=== PATIENT | male | born 1955 | race Caucasian/White ===

== ENCOUNTER 2018-07-24 10:44 | Emergency (ER) | payer BC ==
--- NOTE | 2018-07-24 10:58 | ER Document Report ---
ED Medical Screen (RME) - General Chief Complaint: S/S of Possible Stroke Stated Complaint: LEFT ARM TINGLING, DIZZY Time Seen by Provider: 07/24/18 10:53 TRAVEL OUTSIDE OF THE [place] IN LAST 30 DAYS: No - HPI Notes: 07/24/18 10:54 Patient is a 63-year-old male who was asked to see at the pivot desk for possible stroke alert. Patient states that he was feeling well this morning, but at 8:30 AM started feeling weakness and numbness to his left arm. Patient states that he also has a left-sided headache. Brief H&P performed to allow for CT of the head. Stroke order set already placed at [facility]. PHYSICAL EXAMINATION: GENERAL: Well-appearing, well-nourished and in no acute distress. A&Ox4. Answers questions appropriately. HEAD: Atraumatic, normocephalic. Non-tender. EYES: Pupils equal round and reactive to light, extraocular movements intact, sclera anicteric, conjunctiva are normal. No nystagmus. NEUROLOGICAL: NIH 3 (1 for left arm drift, 1 for minimal dec in sensation, and another 1 for mild limb ataxia to the LUE). GCS 15. Cranial nerves grossly intact. Normal speech. PSYCH: Normal mood, normal affect. - Related Data Allergies/Adverse Reactions: No Known Allergies Allergy (Verified 07/24/18 10:49)
--- NOTE | 2018-07-24 11:13 | RADIOLOGY REPORT (SQ) ---
EXAM DESCRIPTION: CHEST SINGLE VIEW COMPLETED DATE/TIME: 07/24/2018 11:03 am REASON FOR STUDY: stroke alert COMPARISON: None. NUMBER OF VIEWS: One view. TECHNIQUE: Single frontal radiographic view of the chest acquired. LIMITATIONS: None. FINDINGS: LUNGS AND PLEURA: No opacities, masses or pneumothorax. No pleural effusion. MEDIASTINUM AND HILAR STRUCTURES: No masses. Contour normal. HEART AND VASCULAR STRUCTURES: Heart normal in size. Normal vasculature. BONES: No acute findings. HARDWARE: None in the chest. OTHER: No other significant finding. IMPRESSION: NO SIGNIFICANT RADIOGRAPHIC FINDING IN THE CHEST. TECHNICAL DOCUMENTATION: JOB ID: [id number] [email or web address]- All Rights Reserved Reading location - IP/workstation name: [email or web address]
--- NOTE | 2018-07-24 11:13 | RADIOLOGY REPORT (SQ) ---
EXAM DESCRIPTION: CT HEAD WITHOUT COMPLETED DATE/TIME: 07/24/2018 11:03 am REASON FOR STUDY: stroke alert COMPARISON: None. TECHNIQUE: Axial images acquired through the brain without intravenous contrast. Images reviewed wi th bone, brain and subdural windows. Additional sagittal and coronal reconstructions were generated. Images stored on PACS. All CT scanners at this facility use dose modulation, iterative reconstruction, and/or weight based d osing when appropriate to reduce radiation dose to as low as reasonably achievable (ALARA). [facility]: Dose Right [facility]: CareDose [facility]: Dose Right [facility]: Teradose 4D [facility]: iPosition RADIATION DOSE: CT Rad equipment meets quality standard of care and radiation dose reduction techniq ues were employed. CTDIvol: 53.2 mGy. DLP: 1017 mGy-cm. mGy. LIMITATIONS: None. FINDINGS: VENTRICLES: Normal size and contour. CEREBRUM: No masses. No hemorrhage. No midline shift. No evidence for acute infarction. Normal gra y/white matter differentiation. No areas of low density in the white matter. CEREBELLUM: No masses. No hemorrhage. No alteration of density. No evidence for acute infarction. EXTRAAXIAL SPACES: No fluid collections. No masses. ORBITS AND GLOBE: No intra- or extraconal masses. Normal contour of globe without masses. CALVARIUM: No fracture. PARANASAL SINUSES: No fluid or mucosal thickening. SOFT TISSUES: No mass or hematoma. OTHER: No other significant finding. IMPRESSION: NORMAL BRAIN CT WITHOUT CONTRAST. EVIDENCE OF ACUTE STROKE: NO. COMMENT: Pertinent positive or negative findings of the imaging study reported as a CRITICAL EXAM alban MEHTA PA-C at11:07 on 07/24/2018. Category of Critical Exam: Stroke alert Quality ID # [id number]: Final reports with documentation of one or more dose reduction techniques (e.g., Au tomated exposure control, adjustment of the mA and/or kV according to patient size, use of iterative reconstruction technique) TECHNICAL DOCUMENTATION: JOB ID: [id number] All Rights Reserved Reading location - IP/workstation name: [email or web address]
[2018-07-24 11:17] LABS: PARTIAL THROMBOPLASTIN TIME 24.4 SEC (23.5-35.8)
[2018-07-24 11:20] LABS: INTERNATIONAL RATION (INR) 0.88; PROTHROMBIN TIME 12.4 SEC (11.4-15.4)
[2018-07-24 11:27] LABS: ABSOLUTE EOSINOPHILS # (AUTO) 0.1 10^3/uL (0.0-0.6); ABSOLUTE LYMPHOCYTES (AUTO) 0.8 10^3/uL (0.5-4.7); ABSOLUTE MONOCYTES (AUTO) 0.4 10^3/uL (0.1-1.4); ABSOLUTE NEUT (AUTO) 7.8 10^3/uL (1.7-8.2); BASOPHILS % (AUTO) 0.2 % (0-2); EOSINOPHILS % (AUTO) 0.8 % (0-6); HEMATOCRIT 46.7 % (37.9-51.0); HEMOGLOBIN 15.4 g/dL (13.5-17.0); LYMPHOCYTES % (AUTO) 9.2 % (13-45); MEAN CORPUSCULAR HEMOGLOBIN 30.4 pg (27.0-33.4); MEAN CORPUSCULAR HGB CONC 33.1 g/dL (32.0-36.0); MEAN CORPUSCULAR VOLUME 92 fl (80-97); MONOCYTES % (AUTO) 4.8 % (3-13); PLATELET COUNT 194 10^3/uL (150-450); RED BLOOD COUNT 5.08 10^6/uL (4.35-5.55); TOTAL CELLS COUNTED % (AUTO) 100 %; WHITE BLOOD COUNT 9.2 10^3/uL (4.0-10.5)
[2018-07-24 11:38] LABS: ALANINE AMINOTRANSFERASE 31 U/L (21-72); ALBUMIN 4.6 g/dL (3.5-5.0); ALKALINE PHOSPHATASE 67 U/L (38-126); ANION GAP 11 (5-19); ASPARTATE AMINO TRANSFERASE 28 U/L (17-59); BILIRUBIN,DIRECT 0.2 mg/dL (0.0-0.4); BILIRUBIN,TOTAL 1.1 mg/dL (0.2-1.3); BLOOD UREA NITROGEN 17 mg/dL (7-20); CARBON DIOXIDE 27 mmol/L (22-30); CHLORIDE 99 mmol/L (98-107); GLUCOSE 108 mg/dL (75-110); POTASSIUM 4.6 mmol/L (3.6-5.0); SODIUM 137.3 mmol/L (137-145)
--- NOTE | 2018-07-24 12:05 | ER Document Report ---
ED Neuro Symptoms/Deficit - General Chief Complaint: S/S of Possible Stroke Stated Complaint: LEFT ARM TINGLING, DIZZY Time Seen by Provider: 07/24/18 10:53 Notes: Patient says he developed numbness and tingling in his left arm and weakness in the left arm and dizziness when walking into the house from outside about 8 AM this morning. He was able to continue walking. He describes the onset of his symptoms as "slowly". Says he had weakness of the left hand and dropped a bottle of water. Patient denies any loss of consciousness or altered mental status. Denies any nausea or vomiting. No visual changes. Headache of the top left side of the head began about 830. When patient arrived here, his assessment showed some drift of the left arm when held up [id number] with the other arm. Also incoordination and touching the patient's finger to examiner's hand and back to the patient's nose and some tingling numbness to sharp stimul ation of the left hand. Patient has had dizzy spells in the past. He had a significant one a couple of years ago. He had a more significant one about 5 years ago. 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 He did not have a hemorrhage in the brain and never required any surgical intervention. He was not put on any medications such as Antivert, etc. has not had any difficulty breathing or shortness of breath. Has not had any chest pains. Patient is visiting here from the [facility] for the holiday. TRAVEL OUTSIDE OF THE [place] IN LAST 30 DAYS: No - Related Data Allergies/Adverse Reactions: No Known Allergies Allergy (Verified 07/24/18 10:49) Past Medical History - Social History Smoking Status: Never Smoker Chew tobacco use (# tins/day): No Frequency of alcohol use: None Drug Abuse: None Family History: Reviewed & Not Pertinent Patient has suicidal ideation: No Patient has homicidal ideation: No Neurological Medical History: Reports: Other - Recurrent dizziness. Some information regarding cavernous venous sinus. Review of Systems - Review of Systems Notes: REVIEW OF SYSTEMS: CONSTITUTIONAL : Denies fever. EENT: Denies eye, ear, nose or mouth or throat pain or other symptoms. . CARDIOVASCULAR: Denies chest pain. RESPIRATORY: Denies cough, chest congestion, or shortness of breath. GASTROINTESTINAL: Denies abdominal pain or nausea, vomiting, or diarrhea. GENITOURINARY: Denies difficulty or painful urinating, urinary frequency, blood in urine. MUSCULOSKELETAL: Denies back or neck pain. Denies joint pain or swelling. SKIN: Denies rash or skin lesions. NEUROLOGICAL: Denies LOC or altered mental status. Mild top and left headache. See HPI regarding left upper extremity weakness and dizziness. ALL OTHER SYSTEMS REVIEWED AND NEGATIVE. Physical Exam - Vital signs Vitals: Pulse Resp BP Pulse Ox 78 18 163/92 H 100 07/24/18 11:00 07/24/18 11:00 07/24/18 11:00 07/24/18 11:00 Interpretation: Normal, Hypertensive - Minimal Notes: PHYSICAL EXAMINATION: GENERAL: Well-appearing, in no acute distress. Vital signs are all essentially normal. HEAD: Atraumatic, normocephalic. No facial asymmetry. EYES: Pupils equal round and reactive to light, extraocular movements intact. No nystagmus. ENT: oropharynx clear without exudates. Moist mucous membranes. No problems swallowing. NECK: Normal range of motion, supple. No bruits heard. LUNGS: Breath sounds clear and equal bilaterally. HEART: Regular rate and rhythm without murmurs. ABDOMEN: Soft, nontender. No guarding or rebound. No masses. BACK: No tenderness throughout entire back. EXTREMITIES: Normal range of motion without pain. NEUROLOGICAL: Normal speech, almost normal gait, but family says he looks a little uncoordinated. Decreased sensation in the dorsal webspace and dorsal left hand normal motor, and reflex exams. Awake, alert, and oriented x3. Cranial nerves normal. When patient has both arms elevated and extended in front of him, the left arm shows a slight drift downward but had a very slow rate. Sfjbyd-ra-pgyy exam is coordinated without problems, and it was felt to b e abnormal when triaged. PSYCH: Normal mood, normal affect. SKIN: Warm, dry, no rashes. Course - Re-evaluation Re-evalutation: 07/24/18 13:[address] scan with some improving functions. He is able to color receiver paper with his left hand and not losing color receiver. He has only minimal drift of the left arm when both arms are extended in front of him. He has no incoordination of his [id number] testing. I called [facility] and discussed this patient with the on-call neurologist, Dr. Gomez, and we agreed that this patient did not meet criteria for administration of thrombolytics with mild and improving symptoms. They were willing to take this patient in transfer. However, then learned that the patient was here on vacation for the weekend and lives in [place] and they would like to be admitted at [facility] [place] in [place]. I called and spoke with there and he was agreeable to accepting the patient in transfer. 07/24/18 13:47 - Vital Signs Vital signs: Temp Pulse Resp BP Pulse Ox 78 23 H 141/87 H 93 07/24/18 11:00 07/24/18 11:16 07/24/18 11:16 07/24/18 11:16 - Laboratory Result Diagrams: 07/24/18 11:03 07/24/18 11:03 Laboratory results interpreted by me: 07/24/18 11:03 Seg Neutrophils % 85.0 H Lymphocytes % 9.2 L - Diagnostic Test Radiology reviewed: Image reviewed, Reports reviewed - CT of the brain, noncontrasted, was negative. CTA of the brain was negative. CTA of the neck was negative. - EKG Interpretation by Me EKG shows normal: Sinus rhythm Rate: Normal Rhythm: NSR Additional EKG results interpreted by me: 07/24/18 13:46 EKG is normal. No ST elevation. Critical Care Note - Critical Care Note Total time excluding time spent on procedures (mins): 45 Discharge - Discharge Clinical Impression: TIA (transient ischemic attack) Condition: Stable Disposition: [facility]
[2018-07-24 12:24] VITALS: BP 130/117
--- NOTE | 2018-07-24 13:03 | RADIOLOGY REPORT (SQ) ---
EXAM DESCRIPTION: CTA HEAD; CTA NECK COMPLETED DATE/TIME: 07/24/2018 12:49 pm REASON FOR STUDY: Weak left arm, dizzy COMPARISON: Same day CT brain TECHNIQUE: Post IV contrast scanning, thin section axial imaging through the neck and brain to evalu ate the arterial structures. Source and MIP images are saved and reviewed on PACS. Advanced 3D imaging as volume-rendering, MIPs, SSD performed? yes All CT scanners at this facility use dose modulation, iterative reconstruction, and/or weight based d osing when appropriate to reduce radiation dose to as low as reasonably achievable (ALARA). [facility]: Dose Right [facility]: CareDose [facility]: Dose Right [facility]: Teradose 4D [facility]: HydroLogex CONTRAST TYPE AND DOSE: contrast/concentration: Isovue 350.00 mg/ml; Total Contrast Delivered: 70.0 ml; Total Saline Delivered: 75.0 ml RENAL FUNCTION: GFR > 60. RADIATION DOSE: 565 mGy cm LIMITATIONS: None. FINDINGS: CTA NECK: Calcific atherosclerosis at the origin of the left vertebral artery without sig nificant stenosis. Minimal atherosclerosis of the internal carotid artery origins without significan t stenosis. The anterior and posterior cervical vessels are patent to the skullbase. [place]: The anterior, middle, posterior cerebral arteries are all patent. No evidence of a neurysm or focal stenosis. POSTERIOR CIRCULATION: The distal vertebral arteries are patent as is the basilar artery. No aneurysm . BRAIN: No gross enhancing lesions as visualized. The superior cerebral hemispheres are not included in the field of view. BONES: Intact as visualized. SINUSES: No fluid or mucosal thickening. OTHER: No other significant finding. IMPRESSION: Minimal atherosclerosis without evidence of cervical or intracranial stenosis, occlusion , or aneurysm. TECHNICAL DOCUMENTATION: JOB ID: [id number] Quality ID # [id number]: Final reports with documentation of one or more dose reduction techniques (e.g., Au tomated exposure control, adjustment of the mA and/or kV according to patient size, use of iterative reconstruction technique) 2010 [employer]- All Rights Reserved Reading location - IP/workstation name: [email or web address]
--- NOTE | 2018-07-24 13:03 | RADIOLOGY REPORT (SQ) ---
EXAM DESCRIPTION: CTA HEAD; CTA NECK COMPLETED DATE/TIME: 07/24/2018 12:49 pm REASON FOR STUDY: Weak left arm, dizzy COMPARISON: Same day CT brain TECHNIQUE: Post IV contrast scanning, thin section axial imaging through the neck and brain to evalu ate the arterial structures. Source and MIP images are saved and reviewed on PACS. Advanced 3D imaging as volume-rendering, MIPs, SSD performed? yes All CT scanners at this facility use dose modulation, iterative reconstruction, and/or weight based d osing when appropriate to reduce radiation dose to as low as reasonably achievable (ALARA). [facility]: Dose Right [facility]: CareDose [facility]: Dose Right [facility]: Teradose 4D [facility]: BitGravity CONTRAST TYPE AND DOSE: contrast/concentration: Isovue 350.00 mg/ml; Total Contrast Delivered: 70.0 ml; Total Saline Delivered: 75.0 ml RENAL FUNCTION: GFR > 60. RADIATION DOSE: 565 mGy cm LIMITATIONS: None. FINDINGS: CTA NECK: Calcific atherosclerosis at the origin of the left vertebral artery without sig nificant stenosis. Minimal atherosclerosis of the internal carotid artery origins without significan t stenosis. The anterior and posterior cervical vessels are patent to the skullbase. [place]: The anterior, middle, posterior cerebral arteries are all patent. No evidence of a neurysm or focal stenosis. POSTERIOR CIRCULATION: The distal vertebral arteries are patent as is the basilar artery. No aneurysm . BRAIN: No gross enhancing lesions as visualized. The superior cerebral hemispheres are not included in the field of view. BONES: Intact as visualized. SINUSES: No fluid or mucosal thickening. OTHER: No other significant finding. IMPRESSION: Minimal atherosclerosis without evidence of cervical or intracranial stenosis, occlusion , or aneurysm. TECHNICAL DOCUMENTATION: JOB ID: [id number] Quality ID # [id number]: Final reports with documentation of one or more dose reduction techniques (e.g., Au tomated exposure control, adjustment of the mA and/or kV according to patient size, use of iterative reconstruction technique) 2010 [employer]- All Rights Reserved Reading location - IP/workstation name: [email or web address]
--- NOTE | 2018-07-24 16:24 | EKG REPORT ---
SEVERITY:- OTHERWISE NORMAL ECG - SINUS RHYTHM LEFT AXIS DEVIATION : Confirmed by: Marcella Serrano 24-Jul-2018 16:24:17
== END 2018-07-24 14:00 | disposition short-term general hospital (02) ==
LOC: ER 10:44
DX: G45.9 Transient cerebral ischemic attack, unspecified (principal); R42 Dizziness and giddiness; R20.2 Paresthesia of skin
CPT/HCPCS: 36415; 70450; 70496; 70498; 71045; 80053; 82962; 85025; 85610; 85730; 93005; 93010; 99291